=== PATIENT | male | born 1990 | race Two or more races ===

== ENCOUNTER 2024-07-29 18:07 | Emergency (ER) | payer SELFPAY ==
[~2024-07-29] VITALS: Ht 182.9 cm; Wt 90.7 kg
[2024-07-29 18:14] VITALS: O2SAT 96
[2024-07-29] MEDS ORDERED: PRED50TA PO (18:40)
[2024-07-29] MEDS ORDERED: predniSONE 50 MG TABLET ONE (18:43)
[2024-07-29] MEDS: predniSONE 50 MG TABLET PO ONE (18:43)
== END 2024-07-29 18:45 | disposition home or self-care (01) ==
LOC: ER 18:17
DX: L30.9 Dermatitis, unspecified (principal); N48.89 Other specified disorders of penis; Z79.52 Long term (current) use of systemic steroids
CPT/HCPCS: 99283; J7512; A4606; A4663